=== PATIENT | male | born 1965 | race Caucasian/White ===

== ENCOUNTER 2019-09-13 19:12 | Emergency (ER) | payer OTHER, SELFPAY ==
[2019-09-13 19:22] VITALS: BP 181/98; PULSE 94; RESP 15; TEMP 36.8; O2SAT 97; BMI 31.2
--- NOTE | 2019-09-13 19:26 | ED_ITS ---
HPI - Back Pain/Injury General Chief Complaint: Back Pain/Injury Stated Complaint: PAIN RIGHT LEG AND GROIN Time Seen by Provider: 09/13/19 19:26 Source: patient History of Present Illness HPI Narrative: 54-year-old gentleman with a history of diabetes, hypertension, hyperlipidemia presents with 5 weeks of right-sided sciatic type back pain and increasing pain from inguinal hernias. He describes an episode about 5 weeks ago where he fell and landed on the outer portion of his right hip. Within 2 weeks he noticed that he was having pain from the low back radiating down the lateral aspect of his right leg. The pain is intermittent and positional. There are times when he is relatively pain-free. Initially Tylenol and Naprosyn were helpful. At 3 weeks he was seen by a provider at [facility] walk-in who diagnosed him simultaneously with bilateral hernias right greater than left and continued sciatic pain. He has been working with a physician through [place] regarding getting into care. He does have a new primary care physician at [facility] but has not yet had a chance to establish care and new appointments have been shifted due to Covid19 pendemic scheduling protocols. He reports no fevers, intermittent shooting pain intermittent decreased sensation the lateral aspect of his right foot and 4th and 5th toe with episodes of normal sensation. He is finding that the right inguinal hernia is becoming more and more painful more difficult to reduce and to the point that his bothering him daily and interrupting sleep patterns due to pain. He was given small course of Vicodin and finds that that has been helpful in alleviating pain to at least improve sleep for a couple of hours each evening. He is extraordinarily cautious about any and all pain medications. Related Data Home Medications Medication Instructions Recorded Confirmed Metformin Hydrochloride 500 mg PO #0 09/25/07 (Glucophage) RAMIPRIL (Altace) 10 mg PO HS #0 09/25/07 Simvastatin (Zocor) 20 PO HS #0 09/25/07 Allergies Allergy/AdvReac Type Severity Reaction Status Date / Time No Known Drug Allergies Allergy Verified 09/13/19 19:22 Review of Systems Review of Systems Narrative: Notes no difficulty walking, no heaviness to the right leg and has not been feeling that the right foot is catching or dragging Denies ? fever ? cough ? cold ? chills ? chest pain ? dyspnea ? orthopnea ? wheezing ? abdominal pain ? change to bowel or bladder habits ? nausea vomiting ? skin changes ? rashes Patient History Medical History (Updated 09/13/19 @ 20:11 by Kalyn Khan MD) Diabetes (Acute) Hyperlipidemia (Acute) Hypertension (Acute) Hypothyroidism (acquired) (Acute) Inguinal hernia bilateral, non-recurrent (Acute) Exam Narrative Exam Narrative: General: Alert appropriate in no acute distress Respiratory: Able to speak in full sentences, no obvious respiratory distress Skin: No obvious rashes, warm and dry Neurologic: Grossly intact no obvious asymmetries or abnormalities. 2+ patellar reflexes and ankle jerks. Full sensation along the right foot and toes. Neurovascularly intact. Musculoskeletal: Able to comfortably and easily get up off the bed to stand Genital: Normal circumcised male moderate size right inguinal hernia tender to palpation but reducible smaller easily reducible hernia on the left Psych, appropriate insight and affect, cooperative Initial Vital Signs Initial Vital Signs: Vital Signs Temperature 98.3 F 09/13/19 19:22 Pulse Rate 94 H 09/13/19 19:22 Respiratory Rate 15 09/13/19 19:22 Blood Pressure 181/98 H 09/13/19 19:22 Pulse Oximetry 97 09/13/19 19:22 Course Vital Signs Vital signs: Vital Signs - 8 hr 09/13/19 19:22 09/13/19 19:35 Temperature 98.3 F Pulse Rate 94 H 100 H Respiratory Rate 15 20 Blood Pressure 181/98 H Blood Pressure [Left Arm] 181/98 H Pulse Oximetry 97 96 [facility] - Back Pain/Injury Medical Records Attestation: I reviewed the patient's medical records. [facility] Narrative Medical decision making narrative: Sciatic pain intermittent, causing problems with sleep, right side, has been present for approximately 5 weeks and may be appropriate to proceed with recommending outpatient MRI scanning. This does need to be reviewed with his primary care physician. Possibility of physical therapy, orthopedic referral and possibility of epidural injections after referral consultation are all discussed. Again, due to current scheduling restrictions for non emergent issues this may need to wait until offices are open hopefully within the next 3-5 weeks. Right inguinal hernia becoming symptomatic daily may be appropriate to have this fixed 1st and see if once this is fixed and his gait returns to normal but the sciatic complaints above resolve without additional intervention. Will refer him to [facility] for consultation. Currently has both Naprosyn and Vicodin to use for pain control. Would over safe doses and recommended 1 Vicodin at night with simultaneous Naprosyn for pain control and improved sleep. Discharge Plan Departure Patient Disposition: Home Clinical Impression: Inguinal hernia bilateral, non-recurrent Qualifiers: Obstruction and gangrene presence: without obstruction or gangrene Recurrence: non-recurrent Qualified Code(s): K40.20 - Bilateral inguinal hernia, without obstruction or gangrene, not specified as recurrent Sciatica Qualifiers: Laterality: right Qualified Code(s): M54.31 - Sciatica, right side Instructions: DI for Groin Hernia, DI for Sciatica Activity Restrictions/Additional Instructions: Thank you for coming in today. You have done all of the right things to try to improve your pain and overall health. At this point, I believe your next step should be to contact [facility] to schedule consultation appointment for the right inguinal hernia. As it has gotten significant enough that it is bothering you daily, it would be appropriate to consider having it surgically repaired. You may find that your gait is altered due to this hernia and the pain it is causing is exacerbating your back pain. For your back pain, there is no indication of progressive neurologic injury or emergency at this time. It is safe to continue Naprosyn twice a day and it is okay to add the Vicodin at night when the pain is significant enough that is interfering with sleep. You do need to schedule an appointment with your primary care physician and it may be appropriate to move on to MRI scanning to better define the injury and see if there are additional treatment options such as epidural steroid injections or even the need for surgery. Similarly, you may benefit from a physical therapy consultation to help relieve the pain. Again, all of these issues will need to be managed and any imaging done will need to be ordered by your primary care physician as an outpatient. Thank you for coming in. I hope you heal quickly Prescriptions: No Action RAMIPRIL (Altace) 10 mg PO HS Qty: 0 RF: 0 Metformin Hydrochloride (Glucophage) 500 mg PO Qty: 0 RF: 0 Simvastatin (Zocor) 20 PO HS Qty: 0 RF: 0 Referrals: Juan Jose Veronica MD [Physician] -
[2019-09-13 19:35] VITALS: BP 181/98; PULSE 100; RESP 20; O2SAT 96
== END 2019-09-13 20:26 | disposition home or self-care (01) ==
PROVIDERS: Emergency Provider Emergency Medicine
DX: K40.20 Bilateral inguinal hernia, without obstruction or gangrene, not specified as recurrent (principal); M54.31 Sciatica, right side
CPT/HCPCS: 99281; 99282

== ENCOUNTER → 2021-01-09 16:01 | Outpatient (CLI) | payer OTHER, SELFPAY ==
[2021-01-09 16:54] LABS: Alanine Aminotransferase 23 IU/L (<50); Albumin 4.4 g/dL (3.5-5.0); Albumin Globulin Ratio 1.3 (1.0-2.8); Alkaline Phosphatase 71 U/L (38-126); Aspartate Aminotransferase 27 IU/L (17-59); BUN Creatinine Ratio 36.7 (6-22); Bilirubin Total 0.6 mg/dL (0.2-1.3); Blood Urea Nitrogen 18 mg/dL (9-20); Calcium 9.7 mg/dL (8.4-10.2); Carbon Dioxide 25 mmol/L (22-32); Chloride 103 mmol/L (98-107); Estimated Glomerular Filt Rate > 60.0 mL/min (>60); Globulin 3.4 g/dL (1.7-4.1); Glucose 273 mg/dL (70-100); HEMOLYSIS < 15 (0-50); Sodium 138 mmol/L (137-145); Total Protein 7.8 g/dL (6.3-8.2)
[2021-01-09 17:05] LABS: Hemoglobin A1C% w Est Avg Glu 8.2 % (4.0-6.0)
[2021-01-09 17:22] LABS: Creatinine Urine Random 62.2 mg/dL
[2021-01-09 17:27] LABS: Microalbumi Creatinin Ratio Ur 46.6 ug/mg CR (<30); Microalbumin Urine Random 2.9 mg/dL (0-1.6)
== END ==
PROVIDERS: PCP Family Medicine; Referring Provider Family Medicine; Visit Provider Family Medicine
DX: E11.65 Type 2 diabetes mellitus with hyperglycemia (principal)
CPT/HCPCS: 36415; 80053; 82043; 82570; 83036